=== PATIENT | female | born 1955 | race African-American/Black ===

== ENCOUNTER 2025-07-09 11:40 | Outpatient (CLI) | payer MEDICARE ==
[2025-07-09 13:13] LABS: #Basophils 0.08 10x3/uL (0.0-0.2); #Eosinophils 0.29 10x3/uL (0.0-0.7); #Monocytes 0.70 10x3/uL (0.11-0.59); #Neutrophils 4.93 10x3/uL (1.40-6.50); %Basophils 1.0 % (0.0-1.0); %Eosinophils 3.6 % (0.0-10.0); %Lymphocytes 26.2 % (21.0-51.0); %Monocytes 8.6 % (0.0-10.0); %Neutrophils 60.4 % (42.0-75.0); Hematocrit 40.3 % (36.0-47.0); Hemoglobin 12.4 g/dL (12.0-16.0); Mean Corpuscular Hemoglobin 31.3 pg (27.0-31.0); Mean Corpuscular Volume 101.8 fL (78.0-98.0); Platelet Count 168 10x3/uL (130-400); Red Blood Cell (RBC) Count 3.96 mill/uL (4.20-5.40); White Blood Cell (WBC) Count 8.16 10x3/uL (4.8-10.8)
[2025-07-09 13:23] LABS: Anion Gap 14 mmol/L (10-20); BUN (Urea Nitrogen) 26 mg/dL (9.8-20.1); Calc. Creatinine Clearance 0 mL/min (70-130); Carbon Dioxide 28 mmol/L (23-31); Chloride 99 mmol/L (98-107); Potassium 4.0 mmol/L (3.5-5.1); Sodium 137 mmol/L (136-145)
[2025-07-09 13:24] LABS: Calcium 9.4 mg/dL (7.8-10.44); Glucose 88 mg/dL (80-115)
[2025-07-09 13:28] LABS: INR-International Normal Ratio 1.0; PTT 30.3 sec (22.9-36.1); Prothrombin Time 13.3 sec (12.0-14.7)
== END 2025-07-09 11:41 | disposition home or self-care (01) ==
LOC: LABBT 11:40
PROVIDERS: ATTEND Surgery
DX: Z01.818 Encounter for other preprocedural examination (principal); N18.6 End stage renal disease; T82.590D Other mechanical complication of surgically created arteriovenous fistula, subsequent encounter
CPT/HCPCS: 71046; 80048; 85025; 85610; 85730; 93005; 93010

== ENCOUNTER 2025-07-14 05:42 | Day surgery (SDC) | payer MEDICARE ==
[2025-07-09 11:58] VITALS: BMI 27.4
[2025-07-14] MEDS ORDERED: Heparin 5,000 UNITS/ML VIAL ONE (06:29)
[2025-07-14] MEDS ORDERED: Bupivacaine 0.25% HCL 30 ML VIAL ONE (06:29)
[2025-07-14] MEDS ORDERED: Heparin 10,000 UNITS/ 10 ML VIAL ONE ×2 (06:29→08:05)
[2025-07-14] MEDS ORDERED: Rocuronium Bromide 10 MG/ML (10ML VIAL) ONE (07:06)
[2025-07-14] MEDS ORDERED: CEFAZOLIN 2 GM VIAL ONE (07:06)
[2025-07-14] MEDS ORDERED: Lidocaine 2% PF 100 mg/5 ml Syringe ONE (07:06)
[2025-07-14] MEDS ORDERED: PROPOFOL 0 ML ONE (07:07)
[2025-07-14] MEDS ORDERED: fentaNYL PF 100 MCG/2 ML SYRINGE ONE ×2 (07:07→08:25)
[2025-07-14] MEDS ORDERED: PROPOFOL 40 ML ONE (07:25)
[2025-07-14] MEDS ORDERED: Ondansetron PF 4 MG/2 ML Vial ONE (07:52)
[2025-07-14] MEDS ORDERED: PHENYLEPHRINE-NS 100 MCG/ML 10 ML SYRINGE ONE (08:23)
[2025-07-14] MEDS ORDERED: HYDROmorphone 0.5 MG/0.5 ML SYRINGE ONE (09:11)
[2025-07-14] MEDS ORDERED: HYDROcodone/Acetaminophen 5/325 mg Tablet ONE (09:50)
== END 2025-07-14 10:30 | disposition home or self-care (01) ==
LOC: SDC 05:42
PROVIDERS: ATTEND Surgery
PROC: 03160JD Bypass Left Axillary Artery to Upper Arm Vein with Synthetic Substitute, Open Approach (ICD-10-PCS; principal; 2025-07-14)
DX: T82.590A Other mechanical complication of surgically created arteriovenous fistula, initial encounter (principal); I12.0 Hypertensive chronic kidney disease with stage 5 chronic kidney disease or end stage renal disease; E78.5 Hyperlipidemia, unspecified; N18.6 End stage renal disease; E11.22 Type 2 diabetes mellitus with diabetic chronic kidney disease; Z79.899 Other long term (current) drug therapy; Y83.2 Surgical operation with anastomosis, bypass or graft as the cause of abnormal reaction of the patient, or of later complication, without mention of misadventure at the time of the procedure
CPT/HCPCS: 36830; 82962; A6258; J0169; J0665; J1100; J1171; J1644 ×2; J2003; J2250; J2405; J2704; J2720; J3010; J3373; 36416; J1642